=== PATIENT | female | born 1950 | race Caucasian/White ===

== ENCOUNTER 2023-04-22 12:25 | Emergency (ER) | payer MEDICARE, OTHER ==
[2023-04-22 12:33] VITALS: TEMP 98.4; BMI 23.8
[2023-04-22] MEDS ORDERED: morphine SULFATE 4 MG/ML VIAL IVPUSH ONE (13:47)
[2023-04-22] MEDS ORDERED: LIDOCAINE HCL/PF 1% SDV 5ML VIAL ONE (15:48)
[2023-04-22] MEDS ORDERED: ACETAMINOPHEN 1000 MG/100 ML BAG IVPB ONE (16:10)
[2023-04-22] MEDS ORDERED: ACETAMINOPHEN INJECTION 100 ML IVPB ONE (16:15)
[2023-04-22] MEDS ORDERED: IBUPROFEN 400 MG TABLET (FP) PO ONE (16:25)
[2023-04-22] MEDS ORDERED: DIPHTH,PERTUSS(ACELL),TET 0.5 ML DISP.SYRIN IM ONE ×2 (16:53)
[2023-04-22 17:08] VITALS: BP 151/87; PULSE 84; RESP 16
== END 2023-04-22 17:08 | disposition home or self-care (01) ==
LOC: JER 12:25
PROC: 0RSKXZZ Reposition Left Shoulder Joint, External Approach (ICD-10-PCS; principal; 2023-04-22)
PROC: 3E0234Z Introduction of Serum, Toxoid and Vaccine into Muscle, Percutaneous Approach (ICD-10-PCS; 2023-04-22)
PROC: 3E033GC Introduction of Other Therapeutic Substance into Peripheral Vein, Percutaneous Approach (ICD-10-PCS; 2023-04-22)
DX: S43.005A Unspecified dislocation of left shoulder joint, initial encounter (principal); W01.0XXA Fall on same level from slipping, tripping and stumbling without subsequent striking against object, initial encounter
CPT/HCPCS: 23650; 70450-TC; 70486-TC; 71045-TC-FY; 72125-TC; 73030-TC-LT-FY; 73060-TC-LT-FY; 73070-TC-LT-FY; 90471; 90715; 96374; 96375; 99285-25